=== PATIENT | female | born 1985 | race Two or more races ===

== ENCOUNTER 2021-03-04 10:03 | Emergency (ER) | payer SELFPAY ==
[~2021-03-04] VITALS: Ht 154.9 cm; Wt 68.1 kg
--- NOTE | 2021-03-04 10:50 | PHYS DOC ---
Past Medical History Past Medical History: No Pertinent History Past Surgical History: No Surgical History Smoking Status: Never Smoker Alcohol Use: None Drug Use: None General Adult EDM: Chief Complaint: HAND PROBLEM HPI: HPI: Patient is a 35-year-old female who is Arabic-speaking only that presents today with bilateral hand numbness and pain for the past week. Patient states that over the past week she has had bilateral hand numbness and tingling that radiates up into her armpit area she states the pain is worse at night and wakes her up in the middle the night. She also states she feels like her hands are numb all the time this in all the fingers and that she feels like her blood is hot. Patient denies shortness of air, fever, cough, any trauma to her neck or any neck pain at this time. This HPI and subsequent examination was done with interpretive services. Review of Systems: Review of Systems: Constitutional: Denies fever or chills. [] Eyes: Denies change in visual acuity. [] HENT: Denies nasal congestion or sore throat. [] Respiratory: Denies cough or shortness of breath. [] Cardiovascular: Denies chest pain or edema. [] GI: Denies abdominal pain, nausea, vomiting, bloody stools or diarrhea. [] : Denies dysuria. [] Musculoskeletal: Bilateral hand pain Integument: Denies rash. [] Neurologic: Denies headache, focal weakness or sensory changes. [] Endocrine: Denies polyuria or polydipsia. [] Lymphatic: Denies swollen glands. [] Psychiatric: Denies depression or anxiety. [] Heart Score: C/O Chest Pain: N/A Risk Factors: Risk Factors: DM, Current or recent (<one month) smoker, HTN, HLP, family history of CAD, obesity. Risk Scores: Score 0 - 3: 2.5% MACE over next 6 weeks - Discharge Home Score 4 - 6: 20.3% MACE over next 6 weeks - Admit for Clinical Observation Score 7 - 10: 72.7% MACE over next 6 weeks - Early Invasive Strategies Physical Exam: PE: Constitutional: Well developed, well nourished, no acute distress, non-toxic appearance. [] HENT: Normocephalic, atraumatic, bilateral external ears normal, oropharynx moist, no oral exudates, nose normal. [] Eyes: PERRLA, EOMI, conjunctiva normal, no discharge. [] Neck: Normal range of motion, no tenderness, supple, no stridor. [] Cardiovascular:Heart rate regular rhythm, no murmur [] Lungs & Thorax: Bilateral breath sounds clear to auscultation [] Abdomen: Bowel sounds normal, soft, no tenderness, no masses, no pulsatile masses. [] Skin: Warm, dry, no erythema, no rash. [] Back: No tenderness, no CVA tenderness. [] Extremities: Bilateral hands cap refill less than 2 seconds, Phalen maneuver done with both hands and were positive as was Durkan sign. Radial pulse 2+ neuro intact in the fourth and fifth fingers decree sensation in the first second and third. No lacerations, abrasions, contusions, or ecchymosis noted Neurologic: Alert and oriented X 3, normal motor function, normal sensory function, no focal deficits noted. [] Psychologic: Affect normal, judgement normal, mood normal. [] EKG: EKG: [] Radiology/Procedures: Radiology/Procedures: [] Course & Med Decision Making: Course & Med Decision Making Pertinent Labs and Imaging studies reviewed. (See chart for details) Patient I believe has carpal tunnel syndrome, states the pain has been going on for [address] the patient in bilateral wrist braces to help with support, will also give the patient a list of clinics to follow-up with for further management of this on an outpatient basis. Patient states that at this time Tylenol and ibuprofen are not helping with her pain patient was informed that once the braces are on for a while that her pain will decrease due to the decreased irritation on the medial nerve. Patient verbalized understanding of this and is agreeable to the plan of care. This was all done with the help of interpretive services. Savanna Disclaimer: Savanna Disclaimer: This electronic medical record was generated, in whole or in part, using a voice recognition dictation system. Departure Departure Impression: Primary Impression: Carpal tunnel syndrome on both sides Disposition: HOME / SELF CARE / HOMELESS Condition: STABLE Referrals: SERGEY BRANNON II, MD Patient Instructions: Carpal Tunnel Syndrome Additional Instructions: Where both wrist braces on a daily basis even wearing them at night for the next couple of weeks, may remove for washing her hands and bathing. Tylenol and/or ibuprofen as needed for pain Follow-up with one of the clinics provided below for further management of your symptoms. [facility] [address] [place] [address] [facility] [address] [place] [address] [facility] [address] [place] [address] [facility] [address] [place] [address] [facility] [address] [place] [address] [facility] [address] [place] [address] [facility] [address] [place] [address] [facility] [address] [place] [address] [facility] [address] [place] [address] [facility] [address] [place] [address] PARUL MEDRANO BRIDGE OPERATOR Mar 04, 2021 10:50
[2021-03-04 11:00] VITALS: BP 122/72
== END 2021-03-04 11:12 | disposition home or self-care (01) ==
LOC: ER 10:03
DX: G56.03 Carpal tunnel syndrome, bilateral upper limbs (principal)
CPT/HCPCS: 29125; 99283